=== PATIENT | male | born 1940 | race Caucasian/White ===

== ENCOUNTER → 2016-05-15 | Outpatient (REF) | payer MEDICARE, OTHER | LOC: M SFHCPLAZ 09:10 | PROVIDERS: ATTEND Family Medicine | DX: E03.9 Hypothyroidism, unspecified (principal); I25.2 Old myocardial infarction; Z11.59 Encounter for screening for other viral diseases; Z12.5 Encounter for screening for malignant neoplasm of prostate; Z53.8 Procedure and treatment not carried out for other reasons ==

== ENCOUNTER → 2016-05-18 | Outpatient (CLI) | payer MEDICARE, OTHER ==
[2016-05-18 10:13] LABS: ALBUMIN 3.6 GM/DL (3.2-5.2); ALKALINE PHOSPHATASE 75 U/L (45-117); ALT/SGPT 19 U/L (12-78); ANION GAP 7 MEQ/L (8-16); AST/SGOT 16 U/L (15-37); BILIRUBIN,TOTAL 0.6 MG/DL (0.2-1.0); BLOOD UREA NITROGEN 23 MG/DL (7-18); CALCIUM LEVEL 8.7 MG/DL (8.8-10.2); CARBON DIOXIDE LEVEL 30 MEQ/L (21-32); CHLORIDE LEVEL 108 MEQ/L (98-107); CHOLESTEROL LEVEL 164 MG/DL (<200); CREATININE FOR GFR 1.24 MG/DL (0.70-1.30); FREE T4 0.91 NG/DL (0.76-1.46); GLOMERULAR FILTRATION RATE > 60.0 (>42); GLUCOSE, FASTING 85 MG/DL (83-110); POTASSIUM SERUM 4.3 MEQ/L (3.5-5.1); SODIUM LEVEL 145 MEQ/L (136-145); TRIGLYCERIDES LEVEL 76 MG/DL (<150)
== END ==
LOC: M LAB 08:44
PROVIDERS: ATTEND Family Medicine
DX: E03.9 Hypothyroidism, unspecified (principal); I25.2 Old myocardial infarction; Z12.5 Encounter for screening for malignant neoplasm of prostate; Z11.59 Encounter for screening for other viral diseases; Z79.899 Other long term (current) drug therapy
CPT/HCPCS: 36415; 80053; 80061; 84439; 84443; G0103; G0472

== ENCOUNTER → 2017-01-13 | Outpatient (CLI) | payer MEDICARE, OTHER ==
[2017-01-13 15:43] LABS: FREE T4 0.86 NG/DL (0.76-1.46)
== END ==
LOC: M LAB 12:28
PROVIDERS: ATTEND Family Medicine
DX: E03.9 Hypothyroidism, unspecified (principal)

== ENCOUNTER → 2017-06-10 | Outpatient (CLI) | payer MEDICARE, OTHER ==
[2017-06-10 12:17] LABS: FREE T4 0.92 NG/DL (0.76-1.46)
== END ==
LOC: M LAB 11:22
DX: E03.9 Hypothyroidism, unspecified (principal)
CPT/HCPCS: 84443

== ENCOUNTER → 2018-06-27 | Outpatient (REF) | payer MEDICARE, OTHER ==
[2018-06-27 10:24] LABS: ALBUMIN 3.6 GM/DL (3.2-5.2); ALT/SGPT 21 U/L (12-78); BILIRUBIN,TOTAL 0.6 MG/DL (0.2-1.0); BLOOD UREA NITROGEN 18 MG/DL (7-18); CALCIUM LEVEL 8.8 MG/DL (8.8-10.2); CARBON DIOXIDE LEVEL 32 MEQ/L (21-32); CHLORIDE LEVEL 107 MEQ/L (98-107); CHOLESTEROL LEVEL 195 MG/DL (<200); CHOLESTEROL RISK RATIO 3.482 (<5); CREATININE FOR GFR 1.11 MG/DL (0.70-1.30); FREE T4 0.99 NG/DL (0.76-1.46); GLOMERULAR FILTRATION RATE > 60.0 (>42); GLUCOSE, FASTING 91 MG/DL (70-100); HDL CHOLESTEROL 56 MG/DL (>40); LDL CHOLESTEROL 130 MG/DL (<100); NON-HDL-C 139 MG/DL; POTASSIUM SERUM 4.1 MEQ/L (3.5-5.1); SODIUM LEVEL 143 MEQ/L (136-145); TOTAL PROTEIN 6.3 GM/DL (6.4-8.2); TRIGLYCERIDES LEVEL 44 MG/DL (<150)
== END ==
LOC: M SFHCPLAZ 08:03
PROVIDERS: ATTEND Family Medicine
DX: Z13.220 Encounter for screening for lipoid disorders (principal); E03.9 Hypothyroidism, unspecified
CPT/HCPCS: 36415; 80053; 80061; 84439; 84443; 90670; G0009; G0463

== ENCOUNTER → 2018-10-24 | Outpatient (REF) | payer MEDICARE, OTHER | LOC: M SFHCPLAZ 17:15 | PROVIDERS: ATTEND Dermatology | DX: C44.619 Basal cell carcinoma of skin of left upper limb, including shoulder (principal); D22.5 Melanocytic nevi of trunk ==

== ENCOUNTER → 2019-02-02 | Outpatient (REF) | payer MEDICARE, OTHER ==
[~2019-02-02] MED LIST: ASPI81CH44 PO; ASPI81TA26 PO; PROTPAK PO; TAMS1CAP17 PO
== END ==
LOC: M SFHCPLAZ 09:52
PROVIDERS: ATTEND Dermatology
DX: L90.5 Scar conditions and fibrosis of skin (principal)

== ENCOUNTER 2019-03-14 08:48 | Inpatient (IN) | payer MEDICARE, OTHER ==
[~2019-03-14] VITALS: Ht 167.6 cm; Wt 60.0 kg
[2019-03-14] MEDS ORDERED: ASPI81CH44 PO (08:58)
[2019-03-14] MEDS ORDERED: TAMS1CAP17 PO (08:58)
[2019-03-14] MEDS ORDERED: PANTOPRAZOLE 40MG INJ (PROTONIX) (C9113) IV ONE (09:30)
[2019-03-14 09:54] LABS: BASO % 0.2 % (0.0-1.0); EOS % 0.1 % (0.0-3.0); HEMATOCRIT 49.2 % (42.0-52.0); HEMOGLOBIN 16.1 g/dl (13.5-17.5); LYMPH % 1.6 % (24.0-44.0); MEAN CORPUSCULAR HEMOGLOBIN 30.9 pg (27.0-33.0); MEAN CORPUSCULAR HGB CONC 32.7 g/dl (32.0-36.5); MEAN CORPUSCULAR VOLUME 94.4 fl (80.0-96.0); MONO # 0.2 10^3/uL (0.0-0.8); MONO % 2.3 % (0.0-5.0); NEUTROPHILS % 95.5 % (36.0-66.0); PLATELET COUNT, AUTOMATED 210 10^3/uL (150-450); RED BLOOD COUNT 5.21 10^6/uL (4.30-6.10); WHITE BLOOD COUNT 10.5 10^3/uL (4.0-10.0)
[2019-03-14 10:15] LABS: INR 1.03; PROTHROMBIN TIME 13.2 SECONDS (11.8-14.0)
[2019-03-14 10:16] LABS: PARTIAL THROMBOPLASTIN TIME 29.3 SECONDS (25.0-38.4)
[2019-03-14 10:20] LABS: ALBUMIN 3.9 GM/DL (3.2-5.2); ALT/SGPT 22 U/L (12-78); BILIRUBIN,DIRECT 0.2 MG/DL (0.0-0.2); BILIRUBIN,TOTAL 0.8 MG/DL (0.2-1.0); CPK CREATINE PHOSPHOKINASE 58 U/L (39-308); LIPASE 122 U/L (73-393); MB/CK RELATIVE INDEX 1.72 (< OR =4); TROPONIN I < 0.02 NG/ML (< 0.10)
[2019-03-14 10:32] LABS: LYMPH # 0.2 10^3/uL (1.5-5.0)
[2019-03-14] MEDS ORDERED: ASPI81TA26 PO (11:36)
[2019-03-14] MEDS: PANTOPRAZOLE SODIUM 40 MG in D5W 50 ML IV SCH ×3 (11:45→21:33)
[2019-03-14] MEDS ORDERED: SIMETHICONE 80 MG CHEW TAB PO PRN (12:45)
[2019-03-14] MEDS ORDERED: NS 1,000 ML IV ONE (12:45)
--- NOTE | 2019-03-14 13:50 | HPE ---
DATE OF ADMISSION: 03/14/2019 PRIMARY CARE PHYSICIAN: Swati Araiza MD ADJUNCT SOCIOLOGY PROFESSOR: Dr. Cam TRUCK DESPATCHER: Dr. Castaneda CHIEF COMPLAINT: Coffee ground emesis. HISTORY OF PRESENT ILLNESS: 78-year-old male with complaints of heartburn symptoms for about a year. No weight loss, dysphagia or odynophagia, complains of coffee ground emesis times one day that started at 1:30 a.m. with 12-15 episodes all day today accompanied with black tarry stools 12-15 times, mixed with loose stools. The patient has had no prior episode of coffee ground emesis and is on chronic aspirin 81 mg for history of coronary artery disease (CAD) and coronary artery bypass grafting (CABG) in the past. He has had non-mucusy without bright red blood type of diarrhea. He drinks city water and lives in [place]. In the summer he lives in [place] with well water but it is chlorinated. The patient has not had any recent travel, no other sick contacts. No recent use of nonsteroidal anti-inflammatory and aside from aspirin has not been on any anticoagulants or other antiplatelet medications. The patient otherwise denies any fever or chills. He has had no chest pain, lightheadedness, or shortness of breath. His complaint of feeling bloated is unrelated to meals. He has had two prior colonoscopies in the past, which were negative done by Dr. Castaneda about 20 years ago. The patient complains of acid burning sensation without any weight loss, odynophagia or dysphagia. He has had worsening bloating when he lies down and has also noted slight indentation in his socks at the end of the day. The patient had no history of alcohol abuse or esophageal varices. No prior history of liver cirrhosis or splenomegaly. In the ER he was stable, blood pressure 103-122 systolic, hemoglobin 16 and hematocrit of 49. Hospitalist was called to admit for evaluation of acute upper gastrointestinal (GI) bleed with coffee ground emesis. PAST MEDICAL HISTORY: CAD with CABG. Benign prostatic hypertrophy (BPH). Dyslipidemia. Subclinical hypothyroidism. CAD right coronary artery (RCA), left anterior descending (LAD). Myocardial infarction 1945 was treated for tuberculosis. 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 Had a right eye cataract done by Dr. Mcfadden in [place]. Dupuytren's contracture in multiple fingers. ALLERGIES: No known drug allergies. PAST SURGICAL HISTORY: Tonsillectomy. Double bypass surgery 2005. Left hand surgery by Dr. Shrestha. Laser surgery of the eye for glaucoma, Dr. Hendricks in [place] in 2006. Deviated septal surgery by ENT in 2006. Cataract on the right by Dr. Hendricks. Left 5th finger Dupuytren's contraction 02/08/2017. Forehead mole excision, benign, 05/2017. HOME MEDICATIONS: - aspirin 81 mg daily - Flomax 0.4 mg at bedtime FAMILY HISTORY: Father age 78 with CAD and cerebrovascular accident (CVA). Mother age 87 of CVA. Pancreatic CA in one brother. One sister. No family history of bladder, prostate or kidney cancer. Both siblings of pancreatic cancer. SOCIAL HISTORY: Patient retired. Previously worked for [employer] in [place], retired in 1994. Denies any cigarette use. The patient has wine three times a week. He is , lives with his at home. REVIEW OF SYSTEMS: As per HPI, 12 point system otherwise negative. PHYSICAL EXAMINATION: Temperature 98.5, pulse 113, respiratory rate 18, blood pressure 103/59, repeat blood pressure 122/61, 95-98% on room air. Generally, patient is awake, alert and oriented times three, answering questions appropriately. No jugular venous distention (JVD). No thyromegaly. Neck is supple, full range of motion. Dry mucous membranes. The patient has a left eye opacification since . Lungs are clear to auscultation. There is no wheezing or rales. Sternotomy scar noted. Heart S1, S2 sinus rhythm. No murmurs, rubs or gallops. Tachycardic. Abdomen is soft, slightly tender in the epigastrium. No rebound or guarding. Doughy. Positive bowel sounds times four quadrants. Extremities trace pitting edema bilateral lower extremities. LABORATORY DATA: White count 10.5, hemoglobin 16, hematocrit 49, platelet count 210. Sodium 141, potassium 4, chloride 103, bicarb 27, BUN 28, creatinine 1.4, ionized calcium of 4.6. INR 1.03, PTT of 29.3, total bilirubin 0.8, direct bilirubin 0.2, AST 17, ALT 22, alkaline phosphatase 80, total CK 58, MB fraction of 1, troponin less than 0.01, total protein of 7, albumin 3.9, lipase of 122. ASSESSMENT/PLAN: 78-year-old male with history of CAD and double quadruple bypass in 2005, CAD, ME, hyperlipidemia, subclinical hypothyroidism who presented with acute onset of hematemesis with coffee ground emesis. ACTIVE ISSUES: 1. Acute upper GI bleed with complaints of coffee ground emesis, black tarry stools. Hemoglobin and hematocrit and vital signs are still stable. The patient is admitted to the medical surgical floor, typed and screened. GI has been consulted for EGD, Dr. Cerna. Currently on Protonix drip. Aspirin withheld. Deep vein thrombosis (DVT) prophylaxis with compression stockings. 2. Diarrhea. Check a GI panel. Rule out acute infectious diarrhea. 3. Acute kidney injury due to hypovolemia from volume loss with upper and lower GI bleed. Normal saline IV fluid bolus for now. Nothing by mouth after midnight and clear diet. 4. History of CAD ME, double bypass 2005. Patient currently has no acute ischemic symptoms. Troponins are negative. The patient's aspirin will be held until the GI bleed has resolved and has been evaluated. 5. Dyslipidemia. Currently not on medications. Check lipid panel in the morning. 6. Subclinical hypothyroidism. Recheck TSH in the morning. 7. BPH. May continue on Flomax. 8. DVT prophylaxis with compression stockings. CODE STATUS: FULL CODE. MTDD
[2019-03-14 15:45] VITALS: BP 120/67
[2019-03-14] MEDS ORDERED: POLYETHYLENE GLYCOL (MIRALAX) 238GM BOTTLE PO ONE (16:30)
--- NOTE | 2019-03-14 18:33 | ECGEPIP ---
[facility] - ED Test Date: 2019-03-14 Pat Name: INNA CARRERA Department: Room: - Gender: Male Human Resources Recruiter: : 1940 Requested By: LAURY PEREZ Order Number: [id number] Reading MD: Franco Bhakta Measurements Intervals [place] Rate: 86 P: 66 WI: 197 QRS: -5 QRSD: 85 T: 68 QT: 354 QTc: 425 Interpretive Statements SINUS RHYTHM BASELINE ARTIFACT AFFECTS INTERPRETATION NO PRIORS FOR COMPARISON Electronically Signed on 03-14-2019 18:33:36 EST by Franco Bhakta
[2019-03-14 20:10] VITALS: BP 123/66
[2019-03-14] MEDS ORDERED: TAMSULOSIN 0.4 MG CAP PO SCH (21:00)
[2019-03-14 21:56] LABS: HEMATOCRIT 40.6 % (42.0-52.0)
[2019-03-14 22:22] LABS: HEMOGLOBIN 13.4 g/dl (13.5-17.5)
[2019-03-15 00:48] VITALS: BP 119/64
[2019-03-15] MEDS ORDERED: KCL 40MEQ IN D5/0.45NS 1000ML 1,000 ML IV SCH (02:00)
[2019-03-15] MEDS: PANTOPRAZOLE SODIUM 40 MG in D5W 50 ML IV SCH ×3 (02:57→14:10)
[2019-03-15] MEDS ORDERED: POLYETHYLENE GLYCOL (MIRALAX) 238GM BOTTLE PO ONE (05:00)
[2019-03-15 05:45] VITALS: BP 117/64
[2019-03-15 06:57] LABS: HEMATOCRIT 39.2 % (42.0-52.0)
[2019-03-15 07:35] LABS: BLOOD UREA NITROGEN 23 MG/DL (7-18); CALCIUM LEVEL 7.6 MG/DL (8.8-10.2); CARBON DIOXIDE LEVEL 23 MEQ/L (21-32); CHLORIDE LEVEL 109 MEQ/L (98-107); CHOLESTEROL LEVEL 112 MG/DL (<200); CHOLESTEROL RISK RATIO 2.731 (<5); CREATININE FOR GFR 1.18 MG/DL (0.70-1.30); GLOMERULAR FILTRATION RATE > 60.0 (>42); GLUCOSE, FASTING 108 MG/DL (70-100); HDL CHOLESTEROL 41 MG/DL (>40); LDL CHOLESTEROL 59 MG/DL (<100); NON-HDL-C 71 MG/DL; POTASSIUM SERUM 3.6 MEQ/L (3.5-5.1); SODIUM LEVEL 139 MEQ/L (136-145); TRIGLYCERIDES LEVEL 61 MG/DL (<150)
[2019-03-15] MEDS ORDERED: PROTPAK PO (09:47)
--- NOTE | 2019-03-15 12:03 | IPN ---
DATE: 03/15/2019 The patient was seen and examined at the bedside. Chart has been reviewed. Overnight GI panel showed norovirus and adenovirus. The patient has had one bowel movement this morning. Denies any coffee ground emesis, lightheadedness, or dizziness. Hemoglobin and hematocrit remain stable at 13 and hematocrit of 39.2, currently nothing by mouth for endoscopy today with Dr. Cerna this afternoon. PHYSICAL EXAMINATION: Temperature 98.2, pulse 81, respiratory rate 18, blood pressure 117/64, 96% on room air. GENERAL: Awake, alert, oriented times three. Answering questions appropriately. HEENT: The patient has a left eye opacification, which is a defect. LUNGS: Clear to auscultation. No wheezing, rales or rhonchi. HEART: S1, S2. Sinus rhythm. ABDOMEN: Soft, nontender, nondistended. Positive bowel sounds. EXTREMITIES: No cyanosis, clubbing. Has trace edema in bilateral lower extremities. LABORATORY DATA: Reviewed. ASSESSMENT AND PLAN: This is a 78-year-old male who presented with coffee ground emesis and complains of black tarry stools and diarrhea. ACTIVE ISSUES: 1. Coffee ground emesis with acute upper gastrointestinal bleed. No acute indication for red blood cell transfusion. The patient has been typed and screening. Hemoglobin and hematocrit and vitals are stable. The patient is going for endoscopy this morning. Dr. Cerna has been consulted. He has been kept nothing by mouth with IV fluids. 2. Norovirus, adenovirus. Currently with no dehydration. Supportive care. Potassium, magnesium, and electrolytes appear to be within normal limits for now. Supplement if needed. 3. History of coronary artery disease, bypass surgery. On chronic aspirin. The patient's aspirin has been held due to coffee ground emesis and acute upper gastrointestinal bleed. 4. Acute kidney injury due to diarrhea, resolved with IV fluid hydration. 5. Deep vein thrombosis (DVT) prophylaxis with compression stockings. DISPOSITION: Discharge home today if negative findings on esophagogastroduodenoscopy (EGD). MTDD
[2019-03-15 12:12] LABS: HEMATOCRIT 39.5 % (42.0-52.0)
[2019-03-15 14:34] VITALS: BP 100/58
[2019-03-15] MEDS ORDERED: LIDOCAINE 2% INJ 100 MG/5 ML SDV (FOR ANES.) As Ordered ONE (16:47)
[2019-03-15] MEDS ORDERED: PROPOFOL 200 MG/20 ML VIAL As Ordered ONE (16:47)
[2019-03-15] MEDS ORDERED: PHENYLephrine HCL 500 MCG/5 ML (100MCG/ML) SYRINGE (J2370) As Ordered ONE (17:52)
--- NOTE | 2019-03-15 18:08 | ROOR ---
Patient Name: Rogerio Metzger Procedure Date: 03/15/2019 2:57 PM Date of : 1940 Age: 78 Gender: Male Note Status: Finalized Procedure: Upper GI endoscopy Indications: Abdominal pain, Hematochezia, Occult blood in stool Providers: Lino CERNA MD Referring MD: 2. Inpatient 2. Inpatient Requesting Provider: Medicines: Monitored Anesthesia Care Complications: No immediate complications. Procedure: Pre-Anesthesia Assessment: - The heart rate, respiratory rate, oxygen saturations, blood pressure, adequacy of pulmonary ventilation, and response to care were monitored throughout the procedure. The Endoscope was introduced through the mouth, and advanced to the second part of duodenum. The upper GI endoscopy was accomplished without difficulty. The patient tolerated the procedure well. Findings: Mildly severe esophagitis was found at the gastroesophageal junction. A small hiatal hernia was present. The exam was otherwise without abnormality. Impression: - Mildly severe esophagitis. - Small hiatal hernia. - Exam is otherwise normal - No specimens collected. Recommendation: - Use a proton pump inhibitor PO daily for 3 months. Lino Cerna MD Lino CERNA MD 03/15/2019 6:07:35 PM Electronically signed by Lino CERNA MD Number of Addenda: 0 Note Initiated On: 03/15/2019 2:57 PM Estimated Blood Loss: Estimated blood loss: none.
--- NOTE | 2019-03-15 18:20 | ROOR ---
Patient Name: Rogerio Metzger Procedure Date: 03/15/2019 2:54 PM Date of : 1940 Age: 78 Gender: Male Note Status: Finalized Procedure: Colonoscopy Indications: Hematochezia, Melena, Rectal bleeding Providers: Lino CERNA MD Referring MD: 2. Inpatient 2. Inpatient Requesting Provider: Medicines: Monitored Anesthesia Care Complications: No immediate complications. Procedure: Pre-Anesthesia Assessment: - The heart rate, respiratory rate, oxygen saturations, blood pressure, adequacy of pulmonary ventilation, and response to care were monitored throughout the procedure. The Colonoscope was introduced through the anus and advanced to 5 cm into the ileum. The colonoscopy was performed without difficulty. The patient tolerated the procedure well. The quality of the bowel preparation was good. Findings: The perianal and digital rectal examinations were normal. A 4 mm polyp was found in the sigmoid colon. The polyp was sessile. The polyp was removed with a hot snare. Resection and retrieval were complete. Multiple medium-mouthed diverticula were found in the sigmoid colon. Internal hemorrhoids were found during retroflexion. The hemorrhoids were moderate. The exam was otherwise without abnormality on direct and retroflexion views. Impression: - One 4 mm polyp in the sigmoid colon, removed with a hot snare. Resected and retrieved. - Diverticulosis in the sigmoid colon. - Internal hemorrhoids. - The examination was otherwise normal on direct and retroflexion views. Recommendation: - [facility]. - Advance diet as tolerated. Lino Cerna MD Lino CERNA MD 03/15/2019 6:19:29 PM Electronically signed by Lino CERNA MD Number of Addenda: 0 Note Initiated On: 03/15/2019 2:54 PM Estimated Blood Loss: Estimated blood loss: none.
[2019-03-15 18:40] LABS: HEMATOCRIT 41.2 % (42.0-52.0); HEMOGLOBIN 13.4 g/dl (13.5-17.5)
[2019-03-15 18:57] VITALS: BP 120/68
[2019-03-15] MEDS ORDERED: LR 1,000 ML IV SCH (19:00)
[2019-03-15] MEDS ORDERED: ONDANSETRON 4MG/2ML VIAL (J2405) IV PRN (19:00)
--- NOTE | 2019-03-16 21:09 | DSES ---
DATE OF ADMISSION: 03/14/2019 DATE OF DISCHARGE: 03/15/2019 GLOVE MACHINE OPERATOR: Dr. Lino Cerna PROCEDURES DURING THIS ADMISSION: Esophagogastroduodenoscopy and colonoscopy. PRIMARY DISCHARGE DIAGNOSES: 1. Severe esophagitis. 2. Hiatal hernia. 3. Diverticulosis. 4. Internal hemorrhoids. 5. Colonic polyp in the sigmoid. 6. Acute blood loss. 7. Adenoviral gastroenteritis/noroviral gastroenteritis with heme-positive stool. DISCHARGE MEDICATIONS: - Protonix 40 mg daily - tamsulosin 0.8 mg at bedtime Patient's aspirin has been held, 81 mg at bedtime, and may be resumed on Wednesday. DISCHARGE INSTRUCTIONS: Patient is to followup with fourth mate, Dr. Cerna, to discuss patient's pathology report from the colonoscopy. He is to followup with primary care physician within 1 week of hospital discharge. HOSPITAL COURSE: This is a 78-year-old male with a history of coronary artery disease, coronary artery bypass graft (CABG), BPH, subclinical hypothyroidism, coronary artery disease (CAD) in right coronary artery, left anterior descending (LAD), and myocardial infarction (NC) in 2005, blind in the left eye since . Had a right eye cataract done by Dr. Mcfadden in [place]. Hypercholesterolemia. Presented with acute onset of intractable nausea and vomiting with coffee-ground emesis as well as 12-15 black, tarry stools at home mixed with loose stools. Patient denied any dizziness, lightheadedness, chest pain, pressure, or tightness at home and presented to the emergency room. Blood pressure was 103/59 with repeat pressure of 122/61. He was afebrile with suprapubic abdominal discomfort bilaterally. Urinalysis was ordered but was not sent. Patient had slight leukocytosis 7.5, hemoglobin was 16, and hematocrit of 49.2. Patient was kept nothing by mouth with intravenous (IV) fluids as well as Protonix drop. Dr. Cerna was consulted for esophagogastroduodenoscopy (EGD)/colonoscopy. Patient underwent EGD on March 15 and was found to have severe esophagitis, small hiatal hernia, and sigmoid colonic polyp, internal hemorrhoids, and diverticulosis. Biopsies were obtained from the colonoscopy, the result of which was unavailable. Gastrointestinal (GI) panel grew out adenovirus and norovirus. He was kept in contact isolation. Hemoccult stool on admission was positive. Patient did well with no recurrent episodes of coffee-ground emesis. No abdominal pain. His diet was advanced to 2-gram salt diet. He was discharged in stable condition with outpatient followup with Dr. Cerna to discuss pathology report. PHYSICAL EXAMINATION ON DISCHARGE: Temperature 98, pulse 70, respiratory rate 20, blood pressure 120/68, 99% on room air. GENERAL: Awake, alert, oriented times three, answering questions appropriately. Anicteric sclerae. No jaundice. No pallor. No jugular venous distention. There is no cervical lymphadenopathy. CHEST: Old well-healed sternotomy scar. No murmurs. No gallops. HEART: S1, S2, sinus. LUNGS: Clear to auscultation. ABDOMEN: Soft, nontender, nondistended. Positive bowel sounds times four quadrants. No rebound, guarding, or hepatosplenomegaly. EXTREMITIES: No clubbing, cyanosis, or pitting edema. LABORATORY DATA: White count 10.5, hemoglobin 13, hematocrit 41, platelet count 210. Sodium 139, potassium 3.6, chloride 109, bicarbonate 23, BUN 23, creatinine 1.1, glucose 108. Microbiology: GI panel: Adenovirus, noroviral. TIME SPENT ON DISCHARGE 30 minutes. MTDD
== END 2019-03-15 19:51 | disposition home or self-care (01) | DRG 392 ==
LOC: M ED 08:48 → M ED INP 11:23 → M MS5PR 15:20
PROVIDERS: ADMIT General Practice; ATTEND General Practice
PROC: 0DBN8ZX Excision of Sigmoid Colon, Via Natural or Artificial Opening Endoscopic, Diagnostic (ICD-10-PCS; 2019-03-15)
PROC: 0DJ08ZZ Inspection of Upper Intestinal Tract, Via Natural or Artificial Opening Endoscopic (ICD-10-PCS; principal; 2019-03-15 16:30)
DX: A08.11 Acute gastroenteropathy due to Norwalk agent (principal); N17.9 Acute kidney failure, unspecified; K20.9 Esophagitis, unspecified; I25.10 Atherosclerotic heart disease of native coronary artery without angina pectoris; N40.0 Benign prostatic hyperplasia without lower urinary tract symptoms; E78.5 Hyperlipidemia, unspecified; E02 Subclinical iodine-deficiency hypothyroidism; K64.8 Other hemorrhoids; K57.30 Diverticulosis of large intestine without perforation or abscess without bleeding; D12.5 Benign neoplasm of sigmoid colon; H54.62 Unqualified visual loss, left eye, normal vision right eye; K44.9 Diaphragmatic hernia without obstruction or gangrene; M72.0 Palmar fascial fibromatosis [Dupuytren]; I25.2 Old myocardial infarction; Z86.15 Personal history of latent tuberculosis infection; Z98.41 Cataract extraction status, right eye; Z95.1 Presence of aortocoronary bypass graft; Z79.82 Long term (current) use of aspirin; Z79.899 Other long term (current) drug therapy

== ENCOUNTER → 2019-03-22 | Outpatient (REF) | payer MEDICARE, OTHER ==
[2019-03-22 13:01] LABS: HEMOGLOBIN 14.4 g/dl (13.5-17.5); MEAN CORPUSCULAR HEMOGLOBIN 30.8 pg (27.0-33.0); MEAN CORPUSCULAR HGB CONC 32.7 g/dl (32.0-36.5); PLATELET COUNT, AUTOMATED 276 10^3/uL (150-450); RED BLOOD COUNT 4.68 10^6/uL (4.30-6.10); WHITE BLOOD COUNT 6.3 10^3/uL (4.0-10.0)
== END ==
LOC: M SFHCPLAZ 10:44
PROVIDERS: ATTEND Family Medicine
DX: D62 Acute posthemorrhagic anemia (principal); Z23 Encounter for immunization
CPT/HCPCS: 36415; 85027; 90682; 99496; G0008; G0463

== ENCOUNTER 2019-10-04 10:13 | Emergency (ER) | payer MEDICARE, OTHER ==
[~2019-10-04] VITALS: Ht 167.6 cm; Wt 65.3 kg
[~2019-10-04 10:13] MED LIST changes: +ASPI1CHW3 PO; -ASPI81CH44 PO
[2019-10-04 10:14] VITALS: BP 133/66
[2019-10-04] MEDS ORDERED: ATOR1TAB21 PO (10:24)
[2019-10-04] MEDS ORDERED: ASPI81TA26 PO (10:24)
--- NOTE | 2019-10-04 11:16 | REP ---
Clinical: Trauma . Findings: Age-related atrophy and microvascular ischemic changes are appreciated. The ventricles and sulci are symmetric. Morrow-white differentiation is maintained. There is no evidence for acute intracranial hemorrhage, mass/mass effect, pathology or infarction. No extra-axial fluid collection. Calvarium is intact. Paranasal sinuses and mastoid air cells are clear. 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 Impression: Age related atrophy and microvascular ischemic changes. No acute intracranial hemorrhage, infarction, or mass/mass effect. Electronically Signed by Chris Wynn MD 10/04/2019 11:07 A
--- NOTE | 2019-10-04 11:17 | REP ---
Clinical: Trauma. Technique: Axial noncontrast images from the skull base to the thoracic inlet with coronal and sagittal re-formations. Findings: Moderate/advanced multilevel degenerative changes include endplate sclerosis, marginal spurring/osteophytosis, disc space narrowing, and facet arthropathy at multiple levels. Alignment is maintained. There is no evidence for acute fracture / compression injury or subluxation. Spinal canal appears patent. Posterior elements and spinous processes are intact. Paravertebral soft tissues are normal. Impression: Moderate to advanced multilevel degenerative spondylosis. No acute cervical spine trauma/injury. Electronically Signed by Chris Wynn MD 10/04/2019 11:09 A
[2019-10-04] MEDS ORDERED: CYCL5TAB PO (11:21)
== END 2019-10-04 11:23 | disposition home or self-care (01) ==
LOC: M ED 10:13
DX: S16.1XXA Strain of muscle, fascia and tendon at neck level, initial encounter (principal); V18.0XXA Pedal cycle driver injured in noncollision transport accident in nontraffic accident, initial encounter; Y92.410 Unspecified street and highway as the place of occurrence of the external cause; Y93.55 Activity, bike riding; Y99.9 Unspecified external cause status

== ENCOUNTER → 2019-10-17 | Outpatient (REF) | payer MEDICARE, OTHER ==
[~2019-10-17] MED LIST changes: +ATOR1TAB21 PO; +CYCL5TAB PO
[2019-10-17 11:59] LABS: ALBUMIN 3.6 GM/DL (3.2-5.2); ALT/SGPT 16 U/L (12-78); BILIRUBIN,TOTAL 0.7 MG/DL (0.2-1.0); BLOOD UREA NITROGEN 19 MG/DL (7-18); CALCIUM LEVEL 8.7 MG/DL (8.8-10.2); CARBON DIOXIDE LEVEL 31 MEQ/L (21-32); CHLORIDE LEVEL 109 MEQ/L (98-107); CHOLESTEROL LEVEL 176 MG/DL (<200); CHOLESTEROL RISK RATIO 3.591 (<5); CREATININE FOR GFR 1.21 MG/DL (0.70-1.30); FREE T4 0.87 NG/DL (0.76-1.46); GLOMERULAR FILTRATION RATE > 60.0 (>35); GLUCOSE, FASTING 89 MG/DL (70-100); HDL CHOLESTEROL 49 MG/DL (>40); LDL CHOLESTEROL 112 MG/DL (<100); NON-HDL-C 127 MG/DL; POTASSIUM SERUM 4.7 MEQ/L (3.5-5.1); SODIUM LEVEL 143 MEQ/L (136-145); TOTAL PROTEIN 6.6 GM/DL (6.4-8.2); TRIGLYCERIDES LEVEL 74 MG/DL (<150)
== END ==
LOC: M SFHCPLAZ 08:02
PROVIDERS: ATTEND Family Medicine
DX: E78.2 Mixed hyperlipidemia (principal); I25.2 Old myocardial infarction; E03.9 Hypothyroidism, unspecified
CPT/HCPCS: 36415; 80053; 80061; 84439; 84443; G0463

== ENCOUNTER → 2020-06-13 | Outpatient (REF) | payer MEDICARE, OTHER ==
[2020-06-13 11:14] LABS: CALCIUM LEVEL 9.3 MG/DL (8.8-10.2); CREATININE FOR GFR 1.34 MG/DL (0.70-1.30); FREE T4 0.87 NG/DL (0.76-1.46); GLOMERULAR FILTRATION RATE 54.5 (>35); POTASSIUM SERUM 4.4 MEQ/L (3.5-5.1); THYROID STIMULATING HORMONE 7.64 uIU/ML (0.358-3.740)
== END ==
LOC: M PLALAB 08:03
PROVIDERS: ATTEND Family Medicine
DX: E03.9 Hypothyroidism, unspecified (principal); I25.2 Old myocardial infarction

== ENCOUNTER → 2020-06-18 | Outpatient (REF) | payer MEDICARE, OTHER ==
[2020-06-18 15:41] LABS: CALCIUM LEVEL 8.9 MG/DL (8.8-10.2); CREATININE FOR GFR 1.26 MG/DL (0.70-1.30); GLOMERULAR FILTRATION RATE 58.5 (>35)
== END ==
LOC: M SFHCPLAZ 11:44
PROVIDERS: ATTEND Family Medicine
DX: R94.4 Abnormal results of kidney function studies (principal); N40.1 Benign prostatic hyperplasia with lower urinary tract symptoms; Z23 Encounter for immunization
CPT/HCPCS: 36415; 80048; 90732; G0009; G0103; G0463

== ENCOUNTER → 2020-07-16 | Outpatient (REF) | payer MEDICARE, OTHER ==
[2020-07-16 12:15] LABS: BLOOD UREA NITROGEN 24 MG/DL (7-18); CALCIUM LEVEL 9.1 MG/DL (8.8-10.2); CARBON DIOXIDE LEVEL 30 MEQ/L (21-32); CHLORIDE LEVEL 109 MEQ/L (98-107); CREATININE FOR GFR 1.15 MG/DL (0.70-1.30); GLOMERULAR FILTRATION RATE > 60.0 (>35); GLUCOSE, FASTING 89 MG/DL (70-100); POTASSIUM SERUM 4.4 MEQ/L (3.5-5.1); SODIUM LEVEL 144 MEQ/L (136-145)
== END ==
LOC: M PLALAB 08:00
PROVIDERS: ATTEND Family Medicine
DX: R94.4 Abnormal results of kidney function studies (principal)

== ENCOUNTER → 2020-12-13 | Outpatient (CLI) | payer MEDICARE, OTHER ==
[2020-12-13 10:35] LABS: CALCIUM LEVEL 8.7 MG/DL (8.8-10.2); CHOLESTEROL RISK RATIO 3.811 (<5); CREATININE FOR GFR 1.31 MG/DL (0.70-1.30); GLOMERULAR FILTRATION RATE 55.9 (>35); POTASSIUM SERUM 3.8 MEQ/L (3.5-5.1)
== END ==
LOC: M PLALAB 08:25
PROVIDERS: ATTEND Family Medicine
DX: I25.10 Atherosclerotic heart disease of native coronary artery without angina pectoris (principal); E78.2 Mixed hyperlipidemia
CPT/HCPCS: 36415; 80048; 80061; G0463

== ENCOUNTER → 2021-08-14 | Outpatient (CLI) | payer MEDICARE, OTHER ==
[2021-08-14 13:32] LABS: HEMATOCRIT 42.6 % (42.0-52.0); HEMOGLOBIN 14.1 g/dl (13.5-17.5); MEAN CORPUSCULAR HEMOGLOBIN 31.6 pg (27.0-33.0); MEAN CORPUSCULAR HGB CONC 33.1 g/dl (32.0-36.5); MEAN CORPUSCULAR VOLUME 95.5 fl (80.0-96.0); PLATELET COUNT, AUTOMATED 203 10^3/uL (150-450); RED BLOOD COUNT 4.46 10^6/uL (4.30-6.10); WHITE BLOOD COUNT 6.3 10^3/uL (4.0-10.0)
[2021-08-14 14:10] LABS: CALCIUM LEVEL 9.7 MG/DL (8.8-10.2); CREATININE FOR GFR 1.31 MG/DL (0.70-1.30); FREE T4 0.92 NG/DL (0.76-1.46); GLOMERULAR FILTRATION RATE 55.8 (>35); POTASSIUM SERUM 4.9 MEQ/L (3.5-5.1); THYROID STIMULATING HORMONE 5.33 uIU/ML (0.358-3.740)
== END ==
LOC: M PLALAB 09:37
PROVIDERS: ATTEND Family Medicine
DX: N40.1 Benign prostatic hyperplasia with lower urinary tract symptoms (principal); E03.9 Hypothyroidism, unspecified; R94.4 Abnormal results of kidney function studies; M79.671 Pain in right foot

== ENCOUNTER → 2022-02-17 | Outpatient (CLI) | payer MEDICARE, OTHER ==
[2022-02-17 12:07] LABS: BASO % 0.5 % (0.0-1.0); EOS # 0.4 10^3/uL (0.0-0.5); EOS % 5.4 % (0.0-3.0); HEMATOCRIT 45.4 % (42.0-52.0); HEMOGLOBIN 14.6 g/dl (13.5-17.5); LYMPH # 1.6 10^3/uL (1.5-5.0); MEAN CORPUSCULAR HGB CONC 32.2 g/dl (32.0-36.5); MEAN CORPUSCULAR VOLUME 96.4 fl (80.0-96.0); MONO # 0.6 10^3/uL (0.0-0.8); MONO % 9.1 % (2.0-8.0); NEUTROPHILS % 60.7 % (36.0-66.0); PLATELET COUNT, AUTOMATED 198 10^3/uL (150-450); RED BLOOD COUNT 4.71 10^6/uL (4.30-6.10); WHITE BLOOD COUNT 6.5 10^3/uL (4.0-10.0)
[2022-02-17 18:09] LABS: ALBUMIN 3.7 G/DL (3.2-5.2); ALKALINE PHOSPHATASE 74 U/L; ALT/SGPT 12 U/L (7.0-40); AST/SGOT 16 U/L (<34); BILIRUBIN,TOTAL 0.6 MG/DL (0.3-1.2); BLOOD UREA NITROGEN 20 MG/DL (9-23); CARBON DIOXIDE LEVEL 28 MMOL/L (20-31); CHLORIDE LEVEL 106 MMOL/L (98-107); CHOLESTEROL LEVEL 172 MG/DL (<200); CREATININE FOR GFR 1.17 MG/DL (0.70-1.30); FREE T4 0.91 NG/DL (0.89-1.76); GLOMERULAR FILTRATION RATE > 60.0 (>35); GLUCOSE, FASTING 94 MG/DL (74-106); HDL CHOLESTEROL 53.6 MG/DL (>40); LDL CHOLESTEROL 104.2 MG/DL (<100); NON-HDL-C 118 MG/DL; POTASSIUM SERUM 4.5 MMOL/L (3.5-5.1); SODIUM LEVEL 144 MMOL/L (136-145); THYROID STIMULATING HORMONE 8.923 uIU/ML (0.55-4.78); TRIGLYCERIDES LEVEL 71 MG/DL (<150)
== END ==
LOC: M PLALAB 07:54
PROVIDERS: ATTEND Physician Assistant
DX: I25.10 Atherosclerotic heart disease of native coronary artery without angina pectoris (principal); E03.9 Hypothyroidism, unspecified

== ENCOUNTER 2022-05-01 14:27 | Emergency (ER) | payer MEDICARE, OTHER ==
[~2022-05-01] VITALS: Ht 167.6 cm; Wt 67.5 kg
[2022-05-01] MEDS ORDERED: ATOR80TA59 PO (15:00)
[2022-05-01 15:22] LABS: BASO # 0.1 10^3/uL (0.0-0.2); BASO % 0.7 % (0.0-1.0); EOS # 0.3 10^3/uL (0.0-0.5); HEMATOCRIT 40.8 % (42.0-52.0); HEMOGLOBIN 13.5 g/dl (13.5-17.5); LYMPH # 1.3 10^3/uL (1.5-5.0); LYMPH % 19.4 % (24.0-44.0); MEAN CORPUSCULAR HEMOGLOBIN 31.4 pg (27.0-33.0); MEAN CORPUSCULAR HGB CONC 33.1 g/dl (32.0-36.5); MEAN CORPUSCULAR VOLUME 94.9 fl (80.0-96.0); MONO # 0.6 10^3/uL (0.0-0.8); NEUTROPHILS # 4.5 10^3/uL (1.5-8.5); NEUTROPHILS % 66.6 % (36.0-66.0); PLATELET COUNT, AUTOMATED 163 10^3/uL (150-450); WHITE BLOOD COUNT 6.8 10^3/uL (4.0-10.0)
[2022-05-01 15:33] LABS: INR 1.02; PROTHROMBIN TIME 13.6 SECONDS (12.5-14.5)
[2022-05-01 15:34] LABS: PARTIAL THROMBOPLASTIN TIME 29.7 SECONDS (24.8-34.2)
[2022-05-01 15:35] LABS: CK-MB VALUE MASS < 1.0 NG/ML (<3.6)
[2022-05-01 15:36] LABS: BLOOD UREA NITROGEN 24 MG/DL (9-23); CALCIUM LEVEL 8.4 MG/DL (8.3-10.6); CARBON DIOXIDE LEVEL 32 MMOL/L (20-31); CHLORIDE LEVEL 104 MMOL/L (98-107); CPK CREATINE PHOSPHOKINASE 70 U/L (46-171); CREATININE FOR GFR 1.27 MG/DL (0.70-1.30); GLOMERULAR FILTRATION RATE 57.7 (>35); GLUCOSE, FASTING 96 MG/DL (74-106); MB/CK RELATIVE INDEX 1.42 (< OR =4); POTASSIUM SERUM 4.5 MMOL/L (3.5-5.1); SODIUM LEVEL 142 MMOL/L (136-145)
[2022-05-01 16:15] VITALS: BP 128/69
== END 2022-05-01 16:30 | disposition home or self-care (01) ==
LOC: M ED 16:06
DX: R07.89 Other chest pain (principal); M19.012 Primary osteoarthritis, left shoulder; I25.2 Old myocardial infarction; Z95.1 Presence of aortocoronary bypass graft; Z79.82 Long term (current) use of aspirin; Z79.899 Other long term (current) drug therapy

== ENCOUNTER → 2022-08-19 | Outpatient (CLI) | payer MEDICARE, OTHER ==
[~2022-08-19] MED LIST changes: +ASPI-655 PO; -ASPI1CHW3 PO; +ATOR80TA59 PO
[2022-08-19 11:10] LABS: ALBUMIN 3.8 G/DL (3.2-5.2); BILIRUBIN,TOTAL 0.7 MG/DL (0.3-1.2); CALCIUM LEVEL 9.4 MG/DL (8.3-10.6); CHOLESTEROL RISK RATIO 3.42 (<5); CREATININE FOR GFR 1.31 MG/DL (0.70-1.30); GLOMERULAR FILTRATION RATE 55.6 (>35); HDL CHOLESTEROL 53.4 MG/DL (>40); NON-HDL-C 129.6 MG/DL; POTASSIUM SERUM 4.7 MMOL/L (3.5-5.1)
[2022-08-19 11:14] LABS: THYROID STIMULATING HORMONE 7.367 uIU/ML (0.55-4.78)
[2022-08-19 11:15] LABS: FREE T4 0.86 NG/DL (0.89-1.76)
== END ==
LOC: M PLALAB 07:47
PROVIDERS: ATTEND Physician Assistant
DX: E03.9 Hypothyroidism, unspecified (principal); I25.10 Atherosclerotic heart disease of native coronary artery without angina pectoris; Z12.5 Encounter for screening for malignant neoplasm of prostate

== ENCOUNTER → 2022-09-11 | Outpatient (REF) | payer MEDICARE, OTHER | LOC: M SFHCDERM 14:38 | PROVIDERS: ATTEND Nurse Practitioner Family | DX: L73.8 Other specified follicular disorders (principal); L57.8 Other skin changes due to chronic exposure to nonionizing radiation ==

== ENCOUNTER → 2023-03-17 | Outpatient (CLI) | payer MEDICARE, OTHER ==
[2023-03-17 14:27] LABS: BASO % 0.5 % (0.0-1.0); EOS # 0.3 10^3/uL (0.0-0.5); EOS % 4.6 % (0.0-3.0); HEMATOCRIT 47.4 % (42.0-52.0); HEMOGLOBIN 15.6 g/dl (13.5-17.5); LYMPH # 1.5 10^3/uL (1.5-5.0); LYMPH % 24.5 % (24.0-44.0); MEAN CORPUSCULAR HEMOGLOBIN 31.5 pg (27.0-33.0); MEAN CORPUSCULAR HGB CONC 32.9 g/dl (32.0-36.5); MEAN CORPUSCULAR VOLUME 95.8 fl (80.0-96.0); MONO # 0.5 10^3/uL (0.0-0.8); MONO % 8.6 % (2.0-8.0); NEUTROPHILS # 3.6 10^3/uL (1.5-8.5); NEUTROPHILS % 61.5 % (36.0-66.0); PLATELET COUNT, AUTOMATED 209 10^3/uL (150-450); RED BLOOD COUNT 4.95 10^6/uL (4.30-6.10); WHITE BLOOD COUNT 5.9 10^3/uL (4.0-10.0)
[2023-03-17 14:55] LABS: ALBUMIN 3.9 G/DL (3.2-5.2); ALKALINE PHOSPHATASE 84 U/L (46-116); ALT/SGPT 13 U/L (7.0-40); AST/SGOT 16 U/L (<34); BILIRUBIN,TOTAL 0.6 MG/DL (0.3-1.2); BLOOD UREA NITROGEN 19 MG/DL (9-23); CARBON DIOXIDE LEVEL 30 MMOL/L (20-31); CHLORIDE LEVEL 108 MMOL/L (98-107); CREATININE FOR GFR 1.12 MG/DL (0.70-1.30); FREE T4 0.94 NG/DL (0.89-1.76); GLOMERULAR FILTRATION RATE > 60.0 (>35); GLUCOSE, FASTING 102 MG/DL (74-106); HEMOGLOBIN A1c 5.3 % (4.0-6.0); POTASSIUM SERUM 4.8 MMOL/L (3.5-5.1); SODIUM LEVEL 144 MMOL/L (136-145); TOTAL PROTEIN 6.4 G/DL (5.7-8.2)
[2023-03-17 14:56] LABS: THYROID STIMULATING HORMONE 8.843 uIU/ML (0.55-4.78)
== END ==
LOC: M PLALAB 09:15
PROVIDERS: ATTEND Physician Assistant
DX: E03.9 Hypothyroidism, unspecified (principal); R35.1 Nocturia; Z13.1 Encounter for screening for diabetes mellitus; Z79.899 Other long term (current) drug therapy; Z12.5 Encounter for screening for malignant neoplasm of prostate
CPT/HCPCS: 36415; 80053; 83036; 84439; 84443; 85025; G0103

== ENCOUNTER → 2023-09-14 | Outpatient (CLI) | payer MEDICARE, OTHER ==
[2023-09-14 18:05] LABS: BASO % 0.5 % (0.0-1.0); EOS # 0.2 10^3/uL (0.0-0.5); EOS % 4.1 % (0.0-3.0); HEMATOCRIT 41.9 % (42.0-52.0); HEMOGLOBIN 13.9 g/dl (13.5-17.5); LYMPH # 1.4 10^3/uL (1.5-5.0); LYMPH % 25.4 % (24.0-44.0); MEAN CORPUSCULAR HEMOGLOBIN 31.9 pg (27.0-33.0); MEAN CORPUSCULAR HGB CONC 33.2 g/dl (32.0-36.5); MEAN CORPUSCULAR VOLUME 96.1 fl (80.0-96.0); MONO # 0.5 10^3/uL (0.0-0.8); MONO % 8.8 % (2.0-8.0); NEUTROPHILS # 3.5 10^3/uL (1.5-8.5); PLATELET COUNT, AUTOMATED 185 10^3/uL (150-450); RED BLOOD COUNT 4.36 10^6/uL (4.30-6.10); WHITE BLOOD COUNT 5.7 10^3/uL (4.0-10.0)
[2023-09-14 18:10] LABS: HEMOGLOBIN A1c 5.4 % (4.0-6.0)
[2023-09-14 18:19] LABS: FERRITIN 69.4 NG/ML (10.5-307.3); FREE T4 0.86 NG/DL (0.89-1.76); THYROID STIMULATING HORMONE 7.262 uIU/ML (0.55-4.78)
[2023-09-14 18:21] LABS: TOTAL 25(OH) VITAMIN D 27.9 NG/ML (20.0-100.0); VITAMIN B12 LEVEL 255 PG/ML (211-911)
[2023-09-14 18:22] LABS: FOLATE 16.2 NG/ML (>5.4)
[2023-09-14 18:25] LABS: ALBUMIN 3.4 G/DL (3.2-5.2); ALKALINE PHOSPHATASE 95 U/L (46-116); ALT/SGPT 14 U/L (7.0-40); AST/SGOT 11 U/L (<34); BILIRUBIN,TOTAL 0.4 MG/DL (0.3-1.2); BLOOD UREA NITROGEN 25 MG/DL (9-23); CALCIUM LEVEL 8.9 MG/DL (8.3-10.6); CARBON DIOXIDE LEVEL 30 MMOL/L (20-31); CHLORIDE LEVEL 108 MMOL/L (98-107); CHOLESTEROL LEVEL 159 MG/DL (<200); CHOLESTEROL RISK RATIO 3.49 (<5); CREATININE FOR GFR 1.16 MG/DL (0.70-1.30); GLOMERULAR FILTRATION RATE > 60.0 (>35); GLUCOSE, FASTING 62 MG/DL (74-106); HDL CHOLESTEROL 45.5 MG/DL (>40); LDL CHOLESTEROL 95.9 MG/DL (<100); NON-HDL-C 113.5 MG/DL; POTASSIUM SERUM 4.2 MMOL/L (3.5-5.1); SODIUM LEVEL 143 MMOL/L (136-145); TOTAL PROTEIN 5.9 G/DL (5.7-8.2); TRIGLYCERIDES LEVEL 88 MG/DL (<150)
== END ==
LOC: M PLALAB 16:09
PROVIDERS: ATTEND Physician Assistant
DX: I95.0 Idiopathic hypotension (principal); R20.2 Paresthesia of skin; R35.1 Nocturia; I25.2 Old myocardial infarction; N40.1 Benign prostatic hyperplasia with lower urinary tract symptoms; E03.9 Hypothyroidism, unspecified; E78.2 Mixed hyperlipidemia; R00.1 Bradycardia, unspecified; Z79.899 Other long term (current) drug therapy

== ENCOUNTER → 2023-09-15 | Outpatient (CLI) | payer MEDICARE, OTHER ==
[~2023-09-15] MED LIST changes: +ISOVUE-370 76% 100ML VIAL ONE
== END ==
LOC: M PLAIMG 07:27
PROVIDERS: ATTEND Physician Assistant
DX: R20.2 Paresthesia of skin (principal)
CPT/HCPCS: 70496; Q9967

== ENCOUNTER 2023-11-23 12:47 | Observation (INO) | payer MEDICARE, OTHER ==
[~2023-11-23] VITALS: Ht 167.6 cm; Wt 62.8 kg
[~2023-11-23 12:47] MED LIST changes: -ISOVUE-370 76% 100ML VIAL ONE
[2023-11-23] MEDS ORDERED: ISOVUE-370 76% 100ML VIAL As Ordered ONE (13:34)
[2023-11-23 13:56] LABS: BASO % 0.6 % (0.0-1.0); EOS # 0.2 10^3/uL (0.0-0.5); EOS % 2.7 % (0.0-3.0); HEMOGLOBIN 13.7 g/dl (13.5-17.5); LYMPH # 1.1 10^3/uL (1.5-5.0); LYMPH % 18.1 % (24.0-44.0); MEAN CORPUSCULAR HEMOGLOBIN 31.5 pg (27.0-33.0); MEAN CORPUSCULAR HGB CONC 33.4 g/dl (32.0-36.5); MEAN CORPUSCULAR VOLUME 94.3 fl (80.0-96.0); MONO # 0.5 10^3/uL (0.0-0.8); MONO % 8.2 % (2.0-8.0); NEUTROPHILS # 4.3 10^3/uL (1.5-8.5); NEUTROPHILS % 70.1 % (36.0-66.0); PLATELET COUNT, AUTOMATED 178 10^3/uL (150-450); RED BLOOD COUNT 4.35 10^6/uL (4.30-6.10); WHITE BLOOD COUNT 6.2 10^3/uL (4.0-10.0)
[2023-11-23 14:15] LABS: INR 1.04; PARTIAL THROMBOPLASTIN TIME 30.1 SECONDS (24.8-34.2); PROTHROMBIN TIME 13.3 SECONDS (12.5-14.5)
[2023-11-23 14:27] LABS: ALBUMIN 3.7 G/DL (3.2-5.2); BILIRUBIN,DIRECT 0.2 MG/DL (<0.4); BILIRUBIN,TOTAL 0.7 MG/DL (0.3-1.2); TOTAL PROTEIN 6.3 G/DL (5.7-8.2)
[2023-11-23 14:28] LABS: FREE T4 0.99 NG/DL (0.89-1.76); THYROID STIMULATING HORMONE 6.244 uIU/ML (0.55-4.78)
[2023-11-23] MEDS ORDERED: CETI-24 PO (15:08)
[2023-11-23] MEDS ORDERED: HOME MED LIST COMPLETE! XX SCH (15:15)
[2023-11-23] MEDS: CLOPIDOGREL 75 MG TAB PO SCH (16:54)
[2023-11-23 22:22] VITALS: BP 119/58; TEMP 97.2; O2SAT 98
[2023-11-23 22:49] LABS: CK-MB VALUE MASS 1.4 NG/ML (<3.6)
[2023-11-23 22:50] LABS: MB/CK RELATIVE INDEX 2.54 (< OR =4)
[2023-11-24] MEDS: ASPIRIN 81MG ENTERIC TABLET PO SCH (00:06)
[2023-11-24] MEDS: TAMSULOSIN 0.4 MG CAP PO SCH (00:07)
[2023-11-24] MEDS: ENOXAPARIN 40MG/0.4ML SYRINGE (J1650 PER 10MG) SC SCH (00:08)
[2023-11-24 06:19] VITALS: BP 117/71; TEMP 97.2; O2SAT 97
[2023-11-24 06:28] LABS: HEMATOCRIT 39.8 % (42.0-52.0); MEAN CORPUSCULAR HEMOGLOBIN 31.3 pg (27.0-33.0); MEAN CORPUSCULAR HGB CONC 32.7 g/dl (32.0-36.5); MEAN CORPUSCULAR VOLUME 95.9 fl (80.0-96.0); PLATELET COUNT, AUTOMATED 149 10^3/uL (150-450); RED BLOOD COUNT 4.15 10^6/uL (4.30-6.10); WHITE BLOOD COUNT 5.4 10^3/uL (4.0-10.0)
[2023-11-24 06:47] LABS: CK-MB VALUE MASS 1.2 NG/ML (<3.6)
[2023-11-24 06:51] LABS: CALCIUM LEVEL 8.6 MG/DL (8.3-10.6); CREATININE FOR GFR 1.24 MG/DL (0.70-1.30); GLOMERULAR FILTRATION RATE 59.1 (>35); MAGNESIUM LEVEL 1.9 MG/DL (1.8-2.4); MB/CK RELATIVE INDEX 2.35 (< OR =4)
[2023-11-24 08:00] VITALS: BP 127/72; TEMP 97.2; O2SAT 97
[2023-11-24] MEDS: CETIRIZINE (ZyrTEC) 10 MG TAB PO SCH (08:10)
== END 2023-11-24 12:30 | disposition home or self-care (01) ==
LOC: M ED 12:47 → M ED INP 12:48 → M MSPAV 22:42
PROVIDERS: ADMIT Family Medicine; ATTEND Family Medicine
DX: R20.2 Paresthesia of skin (principal); R53.1 Weakness; R29.702 NIHSS score 2; I25.10 Atherosclerotic heart disease of native coronary artery without angina pectoris; I25.2 Old myocardial infarction; I67.82 Cerebral ischemia; G31.1 Senile degeneration of brain, not elsewhere classified; J01.21 Acute recurrent ethmoidal sinusitis; J01.31 Acute recurrent sphenoidal sinusitis; E02 Subclinical iodine-deficiency hypothyroidism; E78.5 Hyperlipidemia, unspecified; N40.0 Benign prostatic hyperplasia without lower urinary tract symptoms; A15.9 Respiratory tuberculosis unspecified; Z92.3 Personal history of irradiation; H54.42A5 Blindness left eye category 5, normal vision right eye; Z98.41 Cataract extraction status, right eye; M72.0 Palmar fascial fibromatosis [Dupuytren]; Z85.828 Personal history of other malignant neoplasm of skin; Z90.89 Acquired absence of other organs; Z95.1 Presence of aortocoronary bypass graft; M65.30 Trigger finger, unspecified finger; Z82.3 Family history of stroke; Z82.49 Family history of ischemic heart disease and other diseases of the circulatory system; Z80.8 Family history of malignant neoplasm of other organs or systems; Z63.4 Disappearance and death of family member
CPT/HCPCS: 36415; 70450; 70496; 70498; 70551; 71045; 80047; 80048; 80076; 82550; 82553; 83735; 84439; 84443; 84484; 85025; 85027; 85610; 85730; 93005; 93041; 93306; 94760; 96372; 99285; G0378; J1650; Q9967

== ENCOUNTER → 2024-06-01 | Outpatient (CLI) | payer MEDICARE, OTHER ==
[~2024-06-01] MED LIST changes: +CETI-24 PO; -CYCL5TAB PO; +CYCL5TAB4 PO
[2024-06-01 19:00] LABS: BASO % 0.5 % (0.0-1.0); EOS # 0.3 10^3/uL (0.0-0.5); EOS % 3.8 % (0.0-3.0); HEMATOCRIT 41.7 % (42.0-52.0); HEMOGLOBIN 13.8 g/dl (13.5-17.5); LYMPH # 1.7 10^3/uL (1.5-5.0); LYMPH % 21.6 % (24.0-44.0); MEAN CORPUSCULAR HEMOGLOBIN 31.9 pg (27.0-33.0); MEAN CORPUSCULAR HGB CONC 33.1 g/dl (32.0-36.5); MEAN CORPUSCULAR VOLUME 96.5 fl (80.0-96.0); MONO # 0.8 10^3/uL (0.0-0.8); MONO % 10.1 % (2.0-8.0); NEUTROPHILS # 4.9 10^3/uL (1.5-8.5); NEUTROPHILS % 63.7 % (36.0-66.0); PLATELET COUNT, AUTOMATED 201 10^3/uL (150-450); RED BLOOD COUNT 4.32 10^6/uL (4.30-6.10); WHITE BLOOD COUNT 7.7 10^3/uL (4.0-10.0)
[2024-06-01 19:20] LABS: PSA SCREENING 1.67 NG/ML (< 4.00)
[2024-06-01 19:24] LABS: FREE T4 1.03 NG/DL (0.89-1.76); THYROID STIMULATING HORMONE 5.924 uIU/ML (0.55-4.78)
[2024-06-01 19:26] LABS: ALBUMIN 3.6 G/DL (3.2-5.2); BILIRUBIN,TOTAL 0.4 MG/DL (0.3-1.2); CALCIUM LEVEL 8.8 MG/DL (8.3-10.6); CREATININE FOR GFR 1.35 MG/DL (0.70-1.30); GLOMERULAR FILTRATION RATE 53.5 (>35); POTASSIUM SERUM 4.6 MMOL/L (3.5-5.1); TOTAL PROTEIN 6.3 G/DL (5.7-8.2)
== END ==
LOC: M PLALAB 15:28
DX: I25.2 Old myocardial infarction (principal); N40.1 Benign prostatic hyperplasia with lower urinary tract symptoms; Z12.5 Encounter for screening for malignant neoplasm of prostate; Z79.899 Other long term (current) drug therapy
CPT/HCPCS: 36415; 80053; 84439; 84443; 85025; G0103

== ENCOUNTER → 2024-10-18 | Outpatient (CLI) | payer MEDICARE, OTHER | LOC: M CARPUL 08:41 | DX: I44.0 Atrioventricular block, first degree (principal); I08.1 Rheumatic disorders of both mitral and tricuspid valves ==

== ENCOUNTER → 2024-12-01 | Outpatient (CLI) | payer MEDICARE, OTHER ==
[~2024-12-01] MED LIST changes: -ASPI-655 PO; +ASPI-737 PO
[2024-12-01 11:19] LABS: CHOLESTEROL LEVEL 164.0 MG/DL (<200); CHOLESTEROL RISK RATIO 3.29 (<5); FREE T4 1.04 NG/DL (0.89-1.76); LDL CHOLESTEROL 94.6 MG/DL (<100); NON-HDL-C 114.2 MG/DL; TRIGLYCERIDES LEVEL 98.0 MG/DL (<150)
[2024-12-01 11:20] LABS: VITAMIN B12 LEVEL 227.0 PG/ML (211-911)
== END ==
LOC: M PLALAB 08:07
DX: R71.8 Other abnormality of red blood cells (principal); E03.9 Hypothyroidism, unspecified; I25.2 Old myocardial infarction